=== PATIENT | female | born 1955 | race Caucasian/White ===

== ENCOUNTER 2016-09-30 11:23 | Observation (INO) | payer BC ==
[~2016-09-30] VITALS: Ht 154.9 cm; Wt 72.2 kg
--- NOTE | 2016-09-30 12:36 | DIAGNOSTIC IMAGING REPORT ---
PROCEDURE: CT HEAD WITHOUT CONTRAST INDICATION: MENTAL STATUS CHANGE, initial encounter TECHNIQUE: Noncontrast axial images with sagittal and coronal reformations. COMPARISON: Head CT 07/09/2012 FINDINGS: Status post right frontotemporal craniotomy and the right supraclinoid aneurysm clip. Normal sulci and ventricular system. Minor bifrontal white matter hypodensities No evidence of acute intracranial process. Mild bilateral maxillary and ethmoid sinus disease. Mastoids are clear. IMPRESSION: 1. No acute intracranial abnormality 2. Status post right frontotemporal craniotomy and right supraclinoid aneurysm clip, unchanged 3. Minor bifrontal white matter chronic changes 4. Findings discussed with Dr. France at 12:33 p.m., [place] Standard Time
--- NOTE | 2016-09-30 19:18 | ED CLINICAL REPORT ---
Clinical Report - Physicians/Mid Levels [facility] [address] [place] [address] 09/30/2016 11:23 Patient: LULA MALDONADO Time Seen: 11:55 Sep 30 2016. Arrived- By ambulance. Historian- patient and EMS personnel. CPT: ER phys charges level 5 (#[id number]). HISTORY OF PRESENT ILLNESS Chief Complaint: HEADACHE. Is still present. 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 due to H/A, memory loss, dizziness confused, weak, nauseas for about [address] Whaley for feeling "sick" cold like symptoms was given Zpack which was just started yesterday.). Onset during light activity. It is described as "pain". Described as a global headache. At its maximum, severity described as moderate. When seen in the E.D., severity described as moderate. Modifying factors: worsened by bright light and noise; relieved by rest. The patient has had photophobia and nausea. No preceding symptoms, blurred vision, numbness or weakness. (Pt indicates that [facility] when she suddenly could not remember where she was and where she was going. She had to get help from her to [facility] get to [facility]. She is better now and symptoms resolved.). Similar symptoms previously: None. Recent medical care: Not recently seen/assessed. REVIEW OF SYSTEMS No fever, muscle aches, sinus pressure, ear pain or sore throat. No head injury, chest pain, difficulty breathing, cough or abdominal pain. No diarrhea, pain with urination, skin rash, enlarged lymph nodes or back pain. All systems otherwise negative, except as recorded above. PAST HISTORY Muscular Dystrophy. Brain aneurysm. Fibromyalgia. Atypical Chest Pain. Pulmonary Embolism. Hypertension. Congestive Heart Failure [RuleOut]. Bronchospasm [RuleOut]. ADDITIONAL SURGERIES: Bladder Suspension. Brain aneurysm. Medications: Mucinex D Oral. Azithromycin Oral. Hydrocodone-Acetaminophen Oral. Albuterol Sulfate HFA Inhalation. Metoprolol Tartrate Oral 25 mg, twice daily. Allergies: Codeine. Demerol. morphine. SOCIAL HISTORY Heavy tobacco smoker (cigarette)- 1 pack per day. Alcohol use. No drug use. ADDITIONAL NOTES The nursing notes have been reviewed. PHYSICAL EXAM Vital Signs: 09/30/2016 11:24 BP: 138/81. HR: 67. RR: 12. O2 saturation: 97%. Temp: 98.2 F. Pain level now: 10/10. Appearance: Alert. Patient in moderate distress. Eyes: Pupils equal, round and reactive to light. Eyes normal inspection. ENT: Ears normal. Nose normal. Pharynx normal. Neck: Normal inspection. Neck supple. No meningeal signs. CVS: Normal heart rate and rhythm. Heart sounds normal. Pulses normal. Respiratory: No respiratory distress. Breath sounds normal. Abdomen: Soft and nontender. Back: Normal inspection. Skin: Skin warm. Normal skin color. No rash. Extremities: Extremities exhibit normal ROM. No lower extremity edema. Neuro: Oriented X 3. Alert. Mood/affect normal. Speech normal. Cranial nerves normal (as tested). No cerebellar findings. No motor deficit. No sensory deficit. Reflexes normal. LABS, X-RAYS, AND EKG CT Head: No acute disease. Laboratory Tests: UA-Culture if indicated: (DARIEL: 09/30/2016 11:30) ( MsgRcvd 09/30/2016 12:49) Final results Test Result Flag Units (Reference) URINE COLOR YELLOW URINE APPEARANCE CLEAR URINE GLUCOSE NEGATIVE (NEGATIVE) URINE BILIRUBIN NEGATIVE (NEGATIVE) URINE KETONE NEGATIVE (NEGATIVE) URINE SPECIFIC GRAVITY <= 1.005 L (1.010-1.030) URINE PH 6.5 (5.0-8.0) URINE PROTEIN NEGATIVE (NEGATIVE) URINE UROBILINOGEN 0.2 EU/dL (0.2-1.0) URINE NITRITE NEGATIVE (NEGATIVE) URINE BLOOD NEGATIVE (NEGATIVE) URINE LEUK ESTERASE NEGATIVE (NEGATIVE) URINE RBC NONE SEEN rbc/hpf (0-1) URINE WBC NONE SEEN wbc/hpf (0-1) URINE EPITHELIAL CELLS RARE EPI/hpf (0-5) URINE BACTERIA NONE SEEN (NONE SEEN) URINE COMMENT CULT NOT INDICATED URINE CULTURES ARE SET-UP BASED ON THE FOLLOWING CRITERIA:POSITIVE NITRITEPOSITIVE LEUKOCYTE ESTERASEGREATER THAN 10 WHITE BLOOD CELLSMODERATE (2+) OR GREATER BACTERIA CBC w Diff: (DARIEL: 09/30/2016 11:50) ( [facility] [place] 12:55[place] Final results Test Result Flag Units (Reference) WHITE BLOOD COUNT 5.0 K/uL (4.5-11.5) RED BLOOD COUNT 4.95 M/uL (4.00-5.20) HEMOGLOBIN 16.1 H gm/dL (12.0-16.0) HEMATOCRIT 45.9 % (36.0-46.0) MEAN CELL VOLUME 93 fL (80-100) MEAN CORPUSCULAR HGB 33 pg (26-34) MEAN CORPUSCULAR HGB CONC 35 g/dL (31-37) RED CELL DISTRIBUTION WIDTH 14.6 % (11.6-14.8) PLATELET COUNT 242 K/uL (150-400) NEUTROPHIL % 49.7 L % (50-75) LYMPH % 37.9 % (25-40) MONO % 9.2 % (3-14) EOSINOPHIL % 2.5 % (0-4) BASOPHIL % 0.7 % (0-2) SED RATE WESTERGREN 10 mm/hr (0-30) CHEM 13 PANEL: (DARIEL: 09/30/2016 11:50) ( [facility] [place] 13:18) Final results Test Result Flag Units (Reference) GLUCOSE 98 mg/dL (70-110) BUN 9 mg/dL (7-18) CREATININE 0.5 L mg/dL (0.6-1.3) Estimated GFR >60 mL/min Estimated GFR- >60 mL/min Note: Persistent reduction over 3 months in eGFR<60 mL/min/1.73 m2 defines CKD. Patients with eGFR values>=60 mL/min/1.73 m2 may also have CKD if evidence ofpersistent proteinuria. Additional information may be foundat www.kidney.org. SODIUM 142 mmol/L (136-145) POTASSIUM 4.3 mmol/L (3.5-5.1) CHLORIDE 106 mmol/L (98-107) CARBON DIOXIDE 26 mmol/L (21-32) CALCIUM 9.6 mg/dL (8.5-10.1) TOTAL PROTEIN 7.5 g/dL (6.4-8.2) ALBUMIN 3.8 g/dL (3.3-5.0) BILIRUBIN, TOTAL 0.7 mg/dL (0.0-1.0) ALKALINE PHOSPHATASE 93 U/L (46-116) AST (SGOT) 35 U/L (15-37) ALT (SGPT) 49 U/L (12-78) MAGNESIUM 2.1 mg/dL (1.8-2.4) CPK 400 H U/L (24-260) CK-MB 9.3 H ng/mL (0.5-3.2) %CKMB 2.3 % (0.0-4.0) TROPONIN I <0.05 ng/mL (0.00-1.5) TROPONIN REFERENCE RANGE:<0.1 NEGATIVE0.1-1.5 INDETERMINANT>1.5 POSITIVE C-REACTIVE PROTEIN 1.2 H mg/dL (0.0-0.9) CSF, Cell Count: (DARIEL: 09/30/2016 16:05) ( MsgRcvd 09/30/2016 17:00) Final results Test Result Flag Units (Reference) CSF GLUCOSE 58 mg/dL (40-75) CSF PROTEIN 80.2 H mg/dL (15-45) CSF TOTAL VOLUME 3.0 CC TUBE # 3 COLOR COLORLESS APPEARANCE CLEAR CSF WBC 5 WBC/mm3 (0-5) CSF RBC 0 RBC/mm3 (0-5) . PROGRESS AND PROCEDURES Course of Care: Pt CT negative. Discussed need for LP due to severe MERIDA that is uncommon for her. She had to have time to discuss it and decide. 15:12 09/30/16. Pt has decided to go ahead with LP. Pt with spell of dizziness and amnesia at home with severe MERIDA and now a small run of tachycardia. May be consistent with transient global amnesia and TIA. Will admit for further monitoring and evaluation. Patient/family counseled. Disposition orders written. Disposition: Admitted to Acute Care. CLINICAL IMPRESSION Transient global amnesia TIA Headache. (Electronically signed by John France MD 10/03/2016 21:37)
--- NOTE | 2016-09-30 19:18 | ED CLINICAL REPORT ---
Clinical Report - Physicians/Mid Levels [facility] [address] [place] [address] 09/30/2016 11:23 Patient: LULA MALDONADO Time Seen: 11:55 Sep 30 2016. Arrived- By ambulance. Historian- patient and EMS personnel. CPT: ER phys charges level 5 (#[id number]). HISTORY OF PRESENT ILLNESS Chief Complaint: HEADACHE. Is still present. 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 Whaley for feeling "sick" cold like symptoms was given Zpack which was just started yesterday.). Onset during light activity. It is described as "pain". Described as a global headache. At its maximum, severity described as moderate. When seen in the E.D., severity described as moderate. Modifying factors: worsened by bright light and noise; relieved by rest. The patient has had photophobia and nausea. No preceding symptoms, blurred vision, numbness or weakness. (Pt indicates that [facility] when she suddenly could not remember where she was and where she was going. She had to get help from her to [facility] get to [facility]. She is better now and symptoms resolved.). Similar symptoms previously: None. Recent medical care: Not recently seen/assessed. REVIEW OF SYSTEMS No fever, muscle aches, sinus pressure, ear pain or sore throat. No head injury, chest pain, difficulty breathing, cough or abdominal pain. No diarrhea, pain with urination, skin rash, enlarged lymph nodes or back pain. All systems otherwise negative, except as recorded above. PAST HISTORY Muscular Dystrophy. Brain aneurysm. Fibromyalgia. Atypical Chest Pain. Pulmonary Embolism. Hypertension. Congestive Heart Failure [RuleOut]. Bronchospasm [RuleOut]. ADDITIONAL SURGERIES: Bladder Suspension. Brain aneurysm. Medications: Mucinex D Oral. Azithromycin Oral. Hydrocodone-Acetaminophen Oral. Albuterol Sulfate HFA Inhalation. Metoprolol Tartrate Oral 25 mg, twice daily. Allergies: Codeine. Demerol. morphine. SOCIAL HISTORY Heavy tobacco smoker (cigarette)- 1 pack per day. Alcohol use. No drug use. ADDITIONAL NOTES The nursing notes have been reviewed. PHYSICAL EXAM Vital Signs: 09/30/2016 11:24 BP: 138/81. HR: 67. RR: 12. O2 saturation: 97%. Temp: 98.2 F. Pain level now: 10/10. Appearance: Alert. Patient in moderate distress. Eyes: Pupils equal, round and reactive to light. Eyes normal inspection. ENT: Ears normal. Nose normal. Pharynx normal. Neck: Normal inspection. Neck supple. No meningeal signs. CVS: Normal heart rate and rhythm. Heart sounds normal. Pulses normal. Respiratory: No respiratory distress. Breath sounds normal. Abdomen: Soft and nontender. Back: Normal inspection. Skin: Skin warm. Normal skin color. No rash. Extremities: Extremities exhibit normal ROM. No lower extremity edema. Neuro: Oriented X 3. Alert. Mood/affect normal. Speech normal. Cranial nerves normal (as tested). No cerebellar findings. No motor deficit. No sensory deficit. Reflexes normal. LABS, X-RAYS, AND EKG CT Head: No acute disease. Laboratory Tests: UA-Culture if indicated: (DARIEL: 09/30/2016 11:30) ( MsgRcvd 09/30/2016 12:49) Final results Test Result Flag Units (Reference) URINE COLOR YELLOW URINE APPEARANCE CLEAR URINE GLUCOSE NEGATIVE (NEGATIVE) URINE BILIRUBIN NEGATIVE (NEGATIVE) URINE KETONE NEGATIVE (NEGATIVE) URINE SPECIFIC GRAVITY <= 1.005 L (1.010-1.030) URINE PH 6.5 (5.0-8.0) URINE PROTEIN NEGATIVE (NEGATIVE) URINE UROBILINOGEN 0.2 EU/dL (0.2-1.0) URINE NITRITE NEGATIVE (NEGATIVE) URINE BLOOD NEGATIVE (NEGATIVE) URINE LEUK ESTERASE NEGATIVE (NEGATIVE) URINE RBC NONE SEEN rbc/hpf (0-1) URINE WBC NONE SEEN wbc/hpf (0-1) URINE EPITHELIAL CELLS RARE EPI/hpf (0-5) URINE BACTERIA NONE SEEN (NONE SEEN) URINE COMMENT CULT NOT INDICATED URINE CULTURES ARE SET-UP BASED ON THE FOLLOWING CRITERIA:POSITIVE NITRITEPOSITIVE LEUKOCYTE ESTERASEGREATER THAN 10 WHITE BLOOD CELLSMODERATE (2+) OR GREATER BACTERIA CBC w Diff: (DARIEL: 09/30/2016 11:50) ( [facility] [place] 12:55) Final results Test Result Flag Units (Reference) WHITE BLOOD COUNT 5.0 K/uL (4.5-11.5) RED BLOOD COUNT 4.95 M/uL (4.00-5.20) HEMOGLOBIN 16.1 H gm/dL (12.0-16.0) HEMATOCRIT 45.9 % (36.0-46.0) MEAN CELL VOLUME 93 fL (80-100) MEAN CORPUSCULAR HGB 33 pg (26-34) MEAN CORPUSCULAR HGB CONC 35 g/dL (31-37) RED CELL DISTRIBUTION WIDTH 14.6 % (11.6-14.8) PLATELET COUNT 242 K/uL (150-400) NEUTROPHIL % 49.7 L % (50-75) LYMPH % 37.9 % (25-40) MONO % 9.2 % (3-14) EOSINOPHIL % 2.5 % (0-4) BASOPHIL % 0.7 % (0-2) SED RATE WESTERGREN 10 mm/hr (0-30) CHEM 13 PANEL: (DARIEL: 09/30/2016 11:50) ( [facility] [place]/2016 13:18) Final results Test Result Flag Units (Reference) GLUCOSE 98 mg/dL (70-110) BUN 9 mg/dL (7-18) CREATININE 0.5 L mg/dL (0.6-1.3) Estimated GFR >60 mL/min Estimated GFR- >60 mL/min Note: Persistent reduction over 3 months in eGFR<60 mL/min/1.73 m2 defines CKD. Patients with eGFR values>=60 mL/min/1.73 m2 may also have CKD if evidence ofpersistent proteinuria. Additional information may be foundat www.kidney.org. SODIUM 142 mmol/L (136-145) POTASSIUM 4.3 mmol/L (3.5-5.1) CHLORIDE 106 mmol/L (98-107) CARBON DIOXIDE 26 mmol/L (21-32) CALCIUM 9.6 mg/dL (8.5-10.1) TOTAL PROTEIN 7.5 g/dL (6.4-8.2) ALBUMIN 3.8 g/dL (3.3-5.0) BILIRUBIN, TOTAL 0.7 mg/dL (0.0-1.0) ALKALINE PHOSPHATASE 93 U/L (46-116) AST (SGOT) 35 U/L (15-37) ALT (SGPT) 49 U/L (12-78) MAGNESIUM 2.1 mg/dL (1.8-2.4) CPK 400 H U/L (24-260) CK-MB 9.3 H ng/mL (0.5-3.2) %CKMB 2.3 % (0.0-4.0) TROPONIN I <0.05 ng/mL (0.00-1.5) TROPONIN REFERENCE RANGE:<0.1 NEGATIVE0.1-1.5 INDETERMINANT>1.5 POSITIVE C-REACTIVE PROTEIN 1.2 H mg/dL (0.0-0.9) CSF, Cell Count: (DARIEL: 09/30/2016 16:05) ( MsgRcvd 09/30/2016 17:00) Final results Test Result Flag Units (Reference) CSF GLUCOSE 58 mg/dL (40-75) CSF PROTEIN 80.2 H mg/dL (15-45) CSF TOTAL VOLUME 3.0 CC TUBE # 3 COLOR COLORLESS APPEARANCE CLEAR CSF WBC 5 WBC/mm3 (0-5) CSF RBC 0 RBC/mm3 (0-5) . PROGRESS AND PROCEDURES Course of Care: Pt CT negative. Discussed need for LP due to severe MERIDA that is uncommon for her. She had to have time to discuss it and decide. 15:12 09/30/16. Pt has decided to go ahead with LP. Pt with spell of dizziness and amnesia at home with severe MERIDA and now a small run of tachycardia. May be consistent with transient global amnesia and TIA. Will admit for further monitoring and evaluation. Patient/family counseled. Disposition orders written. Disposition: Admitted to Acute Care. CLINICAL IMPRESSION Transient global amnesia TIA Headache. (Electronically signed by John France MD 10/03/2016 21:37)
--- NOTE | 2016-09-30 19:18 | ED NURSING NOTES ---
Clinical Report - Nurses [facility] [address] [place] [address] 09/30/2016 11:23 Patient: LULA MALDONADO TRIAGE Triage time 1124 PM. Acuity: LEVEL 2. Chief Complaint: HEADACHE. Alert. No acute distress. STEPAN COMA SCORE: Cary Coma Scale. Stepan Coma Scale: 14- eyes open spontaneously (4); best verbal response- disoriented (4); best motor response- obeys commands (6). --11:46 Connie Marshall R.N. 11:24 09/30/16. BP: 138/81 (regular adult cuff) taken on the right arm, via an automated monitor, while sitting. HR: 67. RR: 12. O2 saturation: 97%. Temp: 98.2 F. Pain level now: 06/05. --11:46 Connie Marshall R.N. Weight: 73.9 kg stated. Height/Length: 61 inches Per Patient. BMI: 30.8. --11:44 Connie Marshall R.N. Medications Metoprolol Tartrate Oral 25 mg, twice daily. --11:28 Connie Marshall R.N. Albuterol Sulfate HFA Inhalation. --11:29 Connie Marshall R.N. Hydrocodone-Acetaminophen Oral. --11:29 Connie Marshall R.N. Azithromycin Oral. --11:31 Connie Marshall R.N. Mucinex D Oral. --11:32 Connie Marshall R.N. Medication/allergy information source: the patient and other. --11:46 Connie Marshall R.N. Allergies Codeine. Demerol. morphine. --11:28 Connie Marshall R.N. History Arrived by EMS, and from a clinic. Historian: patient. Primary physician (Dr. Roberto). ( Pt arrived via EMS from the [facility] due to H/A, memory loss, dizziness confused, weak, nauseas for about [address] Whaley for feeling "sick" cold like symptoms was given Zpack which was just started yesterday.). This started 5 days. Patient was witnessed to be last known well (yesterday). Onset. (5 days). The patient has had fever, nausea and weakness. No vomiting, numbness or sinus pain. 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 EMS treatment FLOORING INSTALLER verbally communicated. BP: 184 / 84. O2 saturation: 97 % room air. Pulse oximeter not applied. youth nutritional monitor not applied. Pre-hospital 12-lead EKG not performed. No medications given. PAST MEDICAL HX: Headaches. Immunizations: up-to-date. SOCIAL HX: Heavy tobacco smoker. Regular alcohol use; consumes four beers a day. No drug use. No recent travel. No infectious disease exposure. No known contact with a sick individual. ABUSE ASSESSMENT: No report of abuse. SELF HARM ASSESSMENT: A self harm assessment was performed. The patient answered "no" to the question "Do you have thoughts of harming or killing yourself?" and "Have you recently had thoughts about harming or killing others?". FALL RISK ASSESSMENT: Fall risk assessment completed. No fall risk identified. NUTRITIONAL RISK ASSESSMENT: The nutritional risk assessment revealed no deficiencies. FUNCTIONAL ASSESSMENT: Functional assessment: no impairments noted. LEARNING NEEDS ASSESSMENT: The learning needs assessment revealed no barriers. --11:46 Connie Marshall R.N. PROBLEMS: Muscular Dystrophy. Brain aneurysm. Fibromyalgia. Atypical Chest Pain. Pulmonary Embolism. Hypertension. --11:39 Connie Marshall R.N. Congestive Heart Failure [RuleOut]. Bronchospasm [RuleOut]. --11:39 Connie Marshall R.N. ADDITIONAL SURGERIES: Bladder Suspension. Brain aneurysm. --11:39 Connie Marshall R.N. Interventions ID band on patient. --11:46 Connie Marshall R.N. PHYSICAL ASSESSMENT To room via stretcher. GENERAL / NEURO / PSYCH: Oriented X 4. Appears in pain. Decreased awareness. The patient is disoriented to place and time. Speech within normal limits. The patient has had weakness. HEENT: No facial asymmetry noted. Pupils equal, round and reactive to light. RESPIRATORY: Respirations not labored. Decreased breath sounds bilaterally; wheezes right upper lung posteriorly; left upper lung posteriorly. CVS: Cardiac rhythm: normal sinus rhythm. Capillary refill less than 2 seconds. GI / : The patient has had nausea. Abdomen soft and nontender. SKIN: Skin is warm and dry. --11:57 Connie Marshall R.N. NURSING PROGRESS NOTES 11:50 09/30/2016 Site #1 started via IV in the left antecubital space with an 20g angiocath; one attempt. Blood drawn: rainbow set. Labeled in the presence of the patient and sent to the lab. Saline lock flushed. --12:00 Connie Marshall R.N. 11:45 09/30/16. BP: 124/77. HR: 59. RR: 19. O2 saturation: 96% on room air. Pain level now: 06/05. --12:04 Connie Marshall R.N. Cardiac rhythm: normal sinus rhythm. The initial plan of care for this patient has been created This plan of care was discussed with the patient and family. youth nutritional monitor, pulse oximeter and NIBP monitor placed on patient. Patient ID band checked for patient name, birthdate and medical record number: patient confirmed. Blood samples drawn from the right antecubital space by nurse per protocol ; labeled in presence of the patient and sent to lab: rainbow set. Patient gowned. Reassurance given. Lights dimmed. ( As per pt's , speech is slow, H/A is mostly in the back of the head "sharp like bites in the front and the left side" photophobia noted, slow motor and speech. MD France aware). GENERAL / NEURO / PSYCH: The patient reports headache. Decreased awareness. HEENT: The patient reports neck pain. Pupillary exam: Right pupil round and briskly reactive to light directly. Left pupil: round and briskly reactive to light directly. Patient transported to CT by stretcher. Two patient identifiers checked. Call light placed in reach. Side rails up x 2. Bed placed in lowest position. Brakes of bed on. Brakes of chair on. --12:04 Connie Marshall R.N. 12:22 09/30/16. BP: 133/68 (regular adult cuff) taken on the left arm, via an automated monitor, while lying. HR: 78. RR: 12. O2 saturation: 100% on room air. Pain level now: 0/10. --12:23 Connie Marshall R.N. 12:34 09/30/2016 Dilaudid (HYDROmorphone HCl PF) IVP 0.5 mg given over 1 minute(s) via site #1. Allergies verified, confirmed 5 rights and sedative warning given to the patient. IV patency established. IV site checked: no pain, redness, or swelling. IV flushed thoroughly pre- and post-medication administration. IVP given by RN. --12:34 Connie Marshall R.N. 12:35 09/30/2016 Zofran (Ondansetron HCl) IVP 4 mg given over 2 minute(s) via site #1. Allergies verified and confirmed 5 rights. IV patency established. IV site checked: no pain, redness, or swelling. IV flushed thoroughly pre- and post-medication administration. IVP given by RN. --12:35 Connie Marshall R.N. 12:37 09/30/16. BP: 133/85 (regular adult cuff) taken on the left arm, via an automated monitor, while sitting. HR: 66. RR: 15. O2 saturation: 90% on room air. Pain level now: 10/10. Additional comments: placed on 2l of NC. --12:41 Connie Marshall R.N. Cardiac rhythm: sinus bradycardia. Oxygen administered by nasal cannula at 2 liters. Reassurance given. The patient is calm. GENERAL / NEURO / PSYCH: The patient reports headache. Appears in pain. HEENT: The patient reports neck pain. RESPIRATORY: Respiratory distress present. SKIN: Skin is warm and dry. Skin color within normal limits. Patient returned from CT by stretcher. (1232 PM). Two patient identifiers checked. Call light placed in reach. Side rails up x 1. Bed placed in lowest position. Brakes of bed on. Brakes of chair on. --12:41 Connie Marshall R.N. 12:52 09/30/2016 Ativan (LORazepam) IVP 0.5 mg given over 1 minute(s) via site #1. Allergies verified, confirmed 5 rights and sedative warning given to the patient. IV patency established. IV site checked: no pain, redness, or swelling. IV flushed thoroughly pre- and post-medication administration. IVP given by RN. --12:52 Connie Marshall R.N. Cardiac rhythm: sinus bradycardia. Reassurance given. Reassessment after medication administered. She has had no adverse reaction. Overall patient status is improved- she states feels better. ( Pt states "H/A better" more of a "float like" tolerating ice chips. Will monitor). GENERAL / NEURO / PSYCH: The patient reports left-sided, occipital, frontal and facial headache is still present but improving and is currently moderate in severity, described as sharp and pressure-like, constant and associated with nausea. Call light placed in reach. Side rails up x 1. Bed placed in lowest position. Brakes of chair on. --13:17 Connie Marshall R.N. 13:00 09/30/16. BP: 124/77. HR: 58. RR: 13. O2 saturation: 98%. O2 started via nasal cannula at 2 liters/minute. Pain level now: 02/03. --13:17 Connie Marshall R.N. 13:09/30/2016 Dilaudid IVP Response: no adverse reaction pain is improving. Symptoms have improved the patient feels better. --13:46 oCnnie Marshall R.N. 13:09/30/2016 Zofran IVP Response: no adverse reaction pain is improving. Symptoms have improved the patient feels better. --13:46 Connie Marshall R.N. 13:09/30/2016 Ativan IVP Response: no adverse reaction pain is improving. Symptoms have improved the patient feels better. --13:46 Connie Marshall R.N. 15:31 09/30/2016 Dilaudid (HYDROmorphone HCl PF) IVP 0.5 mg given over 1 minute(s) via site #1. Allergies verified, confirmed 5 rights and sedative warning given to the patient. IV patency established. IV site checked: no pain, redness, or swelling. IV flushed thoroughly pre- and post-medication administration. IVP given by RN. --15:31 Connie Marshall R.N. 15:09/30/2016 Ativan (LORazepam) IVP 0.5 mg given over 1 minute(s) via site #1. Allergies verified, confirmed 5 rights and sedative warning given to the patient and patient's family. IV patency established. IV site checked: no pain, redness, or swelling. IV flushed thoroughly pre- and post-medication administration. IVP given by RN. --15:31 Connie Marshall R.N. 15:00 09/30/16. BP: 137/83. HR: 61. RR: 14. O2 saturation: 95%. Temp: 98.2 F. Pain level now: 03/05. --15:33 Connie Marshall R.N. Cardiac rhythm: normal sinus rhythm. Oxygen administered by nasal cannula at 2 liters. youth nutritional monitor, pulse oximeter and NIBP monitor placed on patient. Reassurance given. Reassessment after oxygen administered and medication administered. She is calm and has had no adverse reaction. Overall patient status is improved- she states feels better. GENERAL / NEURO / PSYCH: The patient reports headache. HEENT: The patient reports neck pain. GI / : The patient reports nausea. SKIN: Skin color within normal limits. Two patient identifiers checked. Call light placed in reach. Side rails up x 1. Bed placed in lowest position. Brakes of bed on. Brakes of chair on. --15:33 Connie Marshall R.N. 16:08 09/30/16. BP: 132/58. HR: 54. RR: 15. O2 saturation: 95%. O2 started via nasal cannula at 2 liters/minute. Pain level now: 02/03. --16:11 Connie Marshall R.N. Cardiac rhythm: sinus bradycardia. youth nutritional monitor, pulse oximeter and NIBP monitor placed on patient. LUMBAR PUNCTURE: Lumbar puncture performed by ED physician (MD France). Assisted by one nurse (Joanna GALLOWAY). Preparation: consent obtained per patient, lumbar puncture tray set up and patient placed in sitting position. Procedure. One attempt. Procedure successful. Post-procedure: patient tolerated the procedure well. Patient instructed to lie flat. Total time of assist / procedure: (5-10 minutes). Reassurance given. Lights dimmed. Reassessment after oxygen administered. She is calm. Overall patient status is the same- she states feels better. ( Lumbar puncture done, consent obtained, pt tolerated procedure well, laying flat as ordered, site intact BA applied, zofran ordered and pain meds. Will monitor). GENERAL / NEURO / PSYCH: The patient reports headache. HEENT: The patient reports neck pain. GI / : The patient reports nausea. Two patient identifiers checked. Call light placed in reach. Side rails up. Brakes of bed on. Brakes of chair on. --16:11 Connie Marshall R.N. 15:57 09/30/2016 Dilaudid IVP Response: no adverse reaction the patient feels the same. --16:12 Connie Marshall R.N. Cardiac rhythm: sinus bradycardia. Oxygen administered. youth nutritional monitor, pulse oximeter and NIBP monitor placed on patient. Reassurance given. The patient is calm. Overall patient status is the same- she states feels the same. GENERAL / NEURO / PSYCH: The patient reports headache. HEENT: The patient reports neck pain. GI / : The patient reports nausea. Brakes of chair on. --16:58 Connie Marshall R.N. 16:30 09/30/16. BP: 134/67. HR: 53. RR: 17. O2 saturation: 95%. O2 started via nasal cannula at 2 liters/minute. Pain level now: 410. --16:58 Connie Marshall R.N. 16:59 09/30/2016 Dilaudid (HYDROmorphone HCl PF) IVP 0.5 mg given over 1 minute(s) via site #1. Allergies verified, confirmed 5 rights and sedative warning given to the patient. IV patency established. IV site checked: no pain, redness, or swelling. IV flushed thoroughly pre- and post-medication administration. IVP given by RN. --17:04 Connie Marshall R.N. 17:03 09/30/2016 Zofran (Ondansetron HCl) IVP 4 mg given over 2 minute(s) via site #1. Allergies verified and confirmed 5 rights. IV patency established. IV site checked: no pain, redness, or swelling. IV flushed thoroughly pre- and post-medication administration. IVP given by RN. --17:03 Connie Marshall R.N. 17:19 09/30/2016 Ativan (LORazepam) IVP 0.5 mg given over 1 minute(s) via site #1. Allergies verified, confirmed 5 rights and sedative warning given to the patient. IV patency established. IV site checked: no pain, redness, or swelling. IV flushed thoroughly pre- and post-medication administration. IVP given by RN. --17:19 Connie Marshall R.N. 17:19 09/30/2016 Zofran IVP Response: no adverse reaction pain is improving. Symptoms are the same. --17:19 Connie Marshall R.N. 17:20 09/30/2016 Dilaudid IVP Response: no adverse reaction. --17:20 Connie Marshall R.N. 16:34 09/30/16. BP: 134/67. HR: 52. RR: 15. O2 saturation: 94% on room air. Pain level now: 510. --19:57 Connie Marshall R.N. 16:45 PM late entry -. Cardiac rhythm: ventricular tachycardia; fine ventricular fibrillation; (50 run of 6 slow VT). youth nutritional monitor, pulse oximeter and NIBP monitor placed on patient. Reassurance given. ( At approximately at 1637 monitored traced a slow VT, asymptomatic VSS, denies SOB/CP Dr. France aware. Will monitor). --19:57 Connie Marshall R.N. Cardiac rhythm: sinus bradycardia. Reassurance given. Overall patient status is improved- she states feels better. ( Pt awaiting bed, found disconnecting from monitors "I want to go for a smoke and see my mom, will be back" educated on the importance of not leaving. Will let Dr. France know. No further arrhythmias noted). GENERAL / NEURO / PSYCH: The patient reports right-sided and occipital headache is still present but improving and is currently mild in severity and described as dull. HEENT: The patient reports neck pain. Two patient identifiers checked. Call light placed in reach. Side rails up x 1. Bed placed in lowest position. Brakes of bed on. Brakes of chair on. Patient waiting for admit bed. --19:59 Connie Marshall R.N. 19:57 09/30/16. BP: 121/54 (regular adult cuff) taken on the left arm, via an automated monitor, while sitting. HR: 58. RR: 16. O2 saturation: 96% on room air. Temp: 98.2 F (oral). Pain level now: 12/04. --19:59 Connie Marshall R.N. 18:51 09/30/2016 Ativan IVP Response: no adverse reaction pain is improving. --20:16 Connie Marshall R.N. 20:16 09/30/2016 Aspirin PO 325 mg given. Allergies verified and confirmed 5 rights. --20:16 Connie Marshall R.N. youth nutritional monitor, pulse oximeter and NIBP monitor placed on patient. Reassurance given. The patient has had no adverse reaction. Overall patient status is improved- she states feels better. ( Pt verbalizing not leaving the ED to "check on mom or smoke" Dr. France aware, nicotine patch will be ordered, awaiting on ICU bed). GENERAL / NEURO / PSYCH: The patient reports headache. HEENT: The patient reports neck pain. Two patient identifiers checked. Call light placed in reach. Side rails up x 1. Brakes of bed on. Brakes of chair on. --20:19 Connie Marshall R.N. 20:54 09/30/16. HR: 75. O2 saturation: 91% on room air. --20:55 Darshan Cantu R.N. 20:55. Cold pack applied (New ice pack given to pt). --20:55 Darshan Cantu R.N. 20:57. Oxygen administered by nasal cannula at 2 liters. --20:57 Darshan Cantu R.N. 21:25 09/30/2016 Dilaudid (HYDROmorphone HCl PF) IVP 1 mg given over 2 minute(s) via site #1. Allergies verified, confirmed 5 rights and sedative warning given to the patient. IV patency established. IV site checked: no pain, redness, or swelling. IV flushed thoroughly pre- and post-medication administration. IVP given by RN. --22:01 Connie Marshall R.N. 21:36 09/30/2016 Aspirin PO Response: no adverse reaction. --22: Connie Marshall R.N. 21:45 09/30/2016 Dilaudid IVP Response: no adverse reaction symptoms have improved the patient feels the same. --22: Connie Marshall R.N. 21:30 late entry -. Oxygen administered by nasal cannula at 2 liters. youth nutritional monitor, pulse oximeter and NIBP monitor placed on patient. Reassurance given. Lights dimmed. Overall patient status is improved- she states feels the same. ( Pt complaint of H/A Dr. Bey made aware, dilaudid given, pt motor response to be intact, speech is less slow but, pt admits to still feeling "foggy". No more runs of VT noted on monitor. Pt voided appro 200cc.). GENERAL / NEURO / PSYCH: The patient reports headache. HEENT: The patient reports neck pain. RESPIRATORY: No respiratory distress present. GI / : The patient reports nausea. Care transferred and report given (NLIESH Zelaya). --22:04 Connie Marshall R.N. DISPOSITION / DISCHARGE 21:33 09/30/2016 Site #1 reassessed; patent, infusing well and no signs of infection or infiltration. Line flushed with saline. Good blood return present. Flushed with 10 mL saline. --21:58 Connie Marshall R.N. Cardiac rhythm: sinus bradycardia. Departure time: 2145 PM. Condition at departure: stable. The goals identified in the patient's plan of care were met. Transported via stretcher by nurse with monitor. Report was given to a nurse via a phone call. Report included patient's care, treatment, medications, reviewed medication reconcilliation, and condition (including any recent changes or anticipated changes). All questions were answered. Report was acknowledged and care was transferred. ( Pt transferred safely to ICU, report given to NILESH Zelaya, IV site intact, dilaudid given as ordered. Neuro checks intact, admits to "stomach being upset" speech faster, LP site intact with BA, no back pain.). FALL RISK ASSESSMENT: Fall risk assessment completed. No fall risk identified. --22:00 Connie Marshall R.N. 21:40 09/30/16. BP: 135/71 (regular adult cuff) taken on the left arm, via an automated monitor, while sitting. HR: 53 (regular and bradycardic). RR: 16. O2 saturation: 96%. O2 started via nasal cannula at 2 liters/minute. Temp: 98.2 F (oral). Pain level now: 03/05. --22:00 Connie Marshall R.N. Locked/Released at 09/30/2016 22:05 by Connie Marshall R.N.
--- NOTE | 2016-09-30 19:18 | ED ORDER SUMMARY ---
..... Patient: LULA MALDONADO OrderSheet [facility] VisitID: [id number] [address] [place] [address] 61y, F Registration Date/Time: 09/30/2016 ORDER SHEET Weight: 73.9 kg (stated) Allergies: Codeine, Demerol, morphine GENERAL ORDERS: CT Head wo Cont Urgent (11:56 09/30/2016 Manolo HOWE) (Ack 11:57 TBergley) (12:04 EHassan R.N.) Cardiac Panel Stat (12:26 09/30/2016 Manolo HOWE) (Ack 12:31 TBergley) (12:32 EHassan R.N.) CRP Urgent (12:26 09/30/2016 Manolo HOWE) (Ack 12:31 TBergley) (12:32 EHassan R.N.) ESR Urgent (12:26 09/30/2016 Manolo HOWE) (Ack 12:31 TBergley) (12:32 EHassan R.N.) UA-Culture if indicated Urgent (12:30 09/30/2016 Manolo HOWE) (Ack 12:31 TBergley) (12:32 EHassan R.N.) LP Tray (15:11 09/30/2016 Manolo HOWE) (15:32 EHassan R.N.) CSF, Cell Count (tube 3) Urgent (16:12 09/30/2016 Manolo HOWE) (Ack 16:13 TBergley) (16:58 EHassan R.N.) CSF, Culture Urgent (16:12 09/30/2016 Manolo HOWE) (Ack 16:13 TBergley) (16:58 EHassan R.N.) CSF, Glucose Urgent (16:12 09/30/2016 Manolo HOWE) (Ack 16:13 TBergley) (16:58 EHassan R.N.) CSF, Protein Urgent (16:12 09/30/2016 Manolo HOWE) (Ack 16:13 TBergley) (16:58 EHassan R.N.) MEDICATION ORDERS: Aspirin PO 325 mg (NOW) (19:19 09/30/2016 Manolo HOWE) (20:16 Lazara R.N.) IV FLUIDS: Dilaudid IV 0.5 mg (NOW) (Sched q5m for X2); Routine (Prn pain) (Sched q5m for X2) (12:26 09/30/2016 Manolo HOWE) (12:34 Lazara R.N.) Ativan IV 0.5 mg (NOW) (12:27 09/30/2016 Manolo HOWE) (12:52 Lazara R.N.) Zofran IV 4 mg (NOW) (12:27 09/30/2016 Manolo HOWE) (12:35 EHgasepr R.N.) IV Saline Lock (12:27 09/30/2016 Manolo HOWE) (12:41 Lazara R.N.) Dilaudid IV 0.5 mg (NOW) (Sched q5m for X2); Routine (Prn pain) (12:31 09/30/2016 Manolo HOWE) (15:31 Lazara R.N.) Dilaudid IV 0.5 mg (NOW) (15:10 09/30/2016 Manolo HOWE) (17:04 EHgasper R.N.) Ativan IV 0.5 mg (NOW) (15:11 09/30/2016 Manolo HOWE) (15:31 Lazara R.N.) Zofran IV 4 mg (NOW) (16:12 09/30/2016 Lazara R.N. verbal order read back to Manolo HOWE) (17:03 Lazara R.N.) Ativan IV 0.5 mg (NOW) (17:15 09/30/2016 Manolo HOWE) (17:19 Lazara R.N.) Dilaudid IV 1 mg (HIGH ALERT MEDICATION, NOW) (21:25 09/30/2016 Luciana HOWE) (22:01 Lazara R.N.) ORDER SHEET NOTES: [Electronically signed by Connie Marshall R.N. (22:05 09/30/2016)] [Electronically signed by John France MD (21:37 10/03/2016)] [Electronically locked/signed by Connie Marshall R.N. (22:05 09/30/2016)]
--- NOTE | 2016-09-30 19:18 | ED ORDER SUMMARY ---
..... Patient: LULA MALDONADO OrderSheet [facility] VisitID: [id number] [address] [place] [address] 61y, F Registration Date/Time: 09/30/2016 ORDER SHEET Weight: 73.9 kg (stated) Allergies: Codeine, Demerol, morphine GENERAL ORDERS: CT Head wo Cont Urgent (11:56 09/30/2016 Manolo HOWE) (Ack 11:57 TBergley) (12:04 EHassan R.N.) Cardiac Panel Stat (12:26 09/30/2016 Manolo HOWE) (Ack 12:31 TBergley) (12:32 EHassan R.N.) CRP Urgent (12:26 09/30/2016 Manolo HOWE) (Ack 12:31 TBergley) (12:32 EHassan R.N.) ESR Urgent (12:26 09/30/2016 Manolo HOWE) (Ack 12:31 TBergley) (12:32 EHassan R.N.) UA-Culture if indicated Urgent (12:30 09/30/2016 Manolo HOWE) (Ack 12:31 TBergley) (12:32 EHassan R.N.) LP Tray (15:11 09/30/2016 Manolo HOWE) (15:32 EHassan R.N.) CSF, Cell Count (tube 3) Urgent (16:12 09/30/2016 Manolo HOWE) (Ack 16:13 TBergley) (16:58 EHassan R.N.) CSF, Culture Urgent (16:12 09/30/2016 Manolo HOWE) (Ack 16:13 TBergley) (16:58 EHassan R.N.) CSF, Glucose Urgent (16:12 09/30/2016 Manolo HOWE) (Ack 16:13 TBergley) (16:58 EHassan R.N.) CSF, Protein Urgent (16:12 09/30/2016 Manolo HOWE) (Ack 16:13 TBergley) (16:58 EHassan R.N.) MEDICATION ORDERS: Aspirin PO 325 mg (NOW) (19:19 09/30/2016 Manolo HOWE) (20:16 Lazara R.N.) IV FLUIDS: Dilaudid IV 0.5 mg (NOW) (Sched q5m for X2); Routine (Prn pain) (Sched q5m for X2) (12:26 09/30/2016 Manolo HOWE) (12:34 Lazara R.N.) Ativan IV 0.5 mg (NOW) (12:27 09/30/2016 Manolo HOWE) (12:52 Lazara R.N.) Zofran IV 4 mg (NOW) (12:27 09/30/2016 Manolo HOWE) (12:35 EHgasper R.N.) IV Saline Lock (12:27 09/30/2016 Manolo HOWE) (12:41 Lazara R.N.) Dilaudid IV 0.5 mg (NOW) (Sched q5m for X2); Routine (Prn pain) (12:31 09/30/2016 Manolo HOWE) (15:31 Lazara R.N.) Dilaudid IV 0.5 mg (NOW) (15:10 09/30/2016 Manolo HOWE) (17:04 EHgasper R.N.) Ativan IV 0.5 mg (NOW) (15:11 09/30/2016 Manolo HOWE) (15:31 Lazara R.N.) Zofran IV 4 mg (NOW) (16:12 09/30/2016 Lazara R.N. verbal order read back to Manolo HOWE) (17:03 Lazara R.N.) Ativan IV 0.5 mg (NOW) (17:15 09/30/2016 Manolo HOWE) (17:19 Lazara R.N.) Dilaudid IV 1 mg (HIGH ALERT MEDICATION, NOW) (21:25 09/30/2016 Luciana HOWE) (22:01 Lazara R.N.) ORDER SHEET NOTES: [Electronically signed by Connie Marshall R.N. (22:05 09/30/2016)] [Electronically signed by John France MD (21:37 10/03/2016)] [Electronically locked/signed by Connie Marshall R.N. (22:05 09/30/2016)]
--- NOTE | 2016-09-30 19:50 | History & Physical Report ---
Admission Admit Date 09/30/2016 History Chief Complaint Headache, Confusion History of Present Illness Patient is a 61 year old female with a past medical history of Essential Hypertension, Pulmonary Embolism, Brain Aneurysm, COPD, Fibromyalgia, and Tobacco Use Disorder who presents to the ER at [facility] complaining of headache and acute confusion. Pt was seen by her PCP earlier today and was sent over from clinic via EMS for further evaluation. Pt states she developed significant confusion this morning and suddenly was unable to recall where she was and why she was there while at her PCPs office this morning. Pt states she has been having a severe headache since yesterday which her home medications have not been relieving, and she went to see her PCP today for further evaluation. She states her symptoms have resolved now, except she continues to have a significant headache. She denies any change in her visual, speech, and swallowing ability. Pt denies any focal weakness, nausea, vomiting, palpitations, chest pain, and shortness of breath. Pt has no other complaints or concerns at this time. Patient History 1. Essential hypertension 2. Fibromyalgia 3. Tobacco use disorder 4. Hx pulmonary embolism 5. Brain aneurysm Social History Pt reports regular daily tobacco use. She also reports regular alcohol consumption but denies excessive drinking. Pt denies any hx of drug use. Pt does not require any assistive devices at baseline. Family History Family history was reviewed; no changes noted. Medications and Allergies Medications Current Medications Sig/Jose David Start time Last Medication Dose Route Stop Time Status Admin Atorvastatin Calcium 10 MG QPM 10/01 1800 UNV PO Aspirin 81 MG DAILY 10/01 0900 UNV PO Famotidine/Sodium 50 ML Q12HR 09/30 2100 UNV Chloride IV Acetaminophen 650 MG Q4H PRN 09/30 1929 UNV PO Al Hydrox/Mg Hydrox/ 15 ML Q1H PRN 09/30 1929 UNV Simethicone PO Albuterol Sulfate 2.5 MG Q3H PRN 09/30 1929 UNV IN Atropine Sulfate 0.5 MG Q3MIN PRN 09/30 1929 UNV IV Docusate Sodium 250 MG BID PRN 09/30 1929 UNV PO Hydromorphone HCl 1 MG Q6H PRN 09/30 1929 UNV IV Labetalol HCl 10 MG Q10M 09/30 1929 UNV IV Lidocaine HCl See Dose ONCE PRN 09/30 1929 UNi Insts (1) IV Magnesium Hydroxide 10 ML DAILY PRN 09/30 1929 UNV PO Morphine Sulfate 2 MG Q3M PRN 09/30 1929 UNV IV Naloxone HCl 0.4 MG PRN PRN 09/30 1929 UNV IV Nitroglycerin 0.4 MG Q5M PRN 09/30 1929 UNV SL Ondansetron HCl 4 MG Q6H PRN 09/30 1929 UNV IV Sodium Chloride 1,000 ML ASDIRECTED 09/30 1929 UNV IV Zolpidem Tartrate 5 MG QHS PRN 09/30 1929 UNV PO Dose Instructions: (1)Lidocaine HCl: 1.5 MG/KG Pts home medication list is not yet available and needs to be reconciled. Allergies Coded Allergies: Codeine (08/28/08) Morphine (01/24/12) Review of Systems Other All systems reviewed and are negative except for what has already been mentioned in the HPI. Physical Exam Vital Signs / I&Os TEMP: 97.7 degrees BP: 139/60 HR: 80 RR: 18 SpO2: 98% on room air Other GENERAL: NAD; Pt laying comfortably in bed HEENT: AT/NC; PERRLA, EOMI; MM Moist CARDIAC: RRR, No M/R/G appreciated PULM: Clear to auscultation bilaterally ABD: Soft, NT, ND, Positive BS in all quadrants; No hepatosplenomegaly appreciated EXT: No C/C/E in bilateral upper and lower extremity; No calve tenderness bilaterally SKIN: Warm, dry, pink, and intact NEURO: Alert and oriented x3; Following all commands; 5/5 strength in bilateral upper and lower extremities PSYCH: Normal mood and affect LAB Results Laboratory Tests 09/30 09/30 09/30 1605 1226 1150 Chemistry Plasma Sodium (136 - 145 mmol/L) 142 Plasma Potassium (3.5 - 5.1 mmol/L) 4.3 Plasma Chloride (98 - 107 mmol/L) 106 CO2 (Enzymatic) (21 - 32 mmol/L) 26 BUN (7 - 18 mg/dL) 9 Creatinine (0.6 - 1.3 mg/dL) 0.5 Est GFR ( Amer) (mL/min) >60 Est GFR (Non-Af Amer) (mL/min) >60 Glucose (70 - 110 mg/dL) 98 Plasma Calcium (8.5 - 10.1 mg/dL) 9.6 Plasma Magnesium (1.8 - 2.4 mg/dL) 2.1 Total Bilirubin (0.0 - 1.0 mg/dL) 0.7 AST (15 - 37 U/L) 35 ALT (12 - 78 U/L) 49 Alkaline Phosphatase (46 - 116 U/L) 93 Creatine Kinase (24 - 260 U/L) 400 CK-MB (CK-2) (0.5 - 3.2 ng/mL) 9.3 CK/CKMB % Calc (0.0 - 4.0 %) 2.3 Troponin (0.00 - 1.5 ng/mL) <0.05 C-Reactive Protein (0.0 - 0.9 mg/dL) Cancelled 1.2 Total Protein (6.4 - 8.2 g/dL) 7.5 Albumin (3.3 - 5.0 g/dL) 3.8 Hematology WBC (4.5 - 11.5 K/uL) 5.0 RBC (4.00 - 5.20 M/uL) 4.95 Hgb (12.0 - 16.0 gm/dL) 16.1 Hct (36.0 - 46.0 %) 45.9 MCV (80 - 100 fL) 93 MCH (26 - 34 pg) 33 RDW (11.6 - 14.8 %) 14.6 Neut % (Auto) (50 - 75 %) 49.7 Lymph % (Auto) (25 - 40 %) 37.9 [place] % (Auto) (3 - 14 %) 9.2 Eos % (Auto) (0 - 4 %) 2.5 Baso % (Auto) (0 - 2 %) 0.7 Plt Count, EDTA (150 - 400 K/uL) 242 PUBS MCHC (31 - 37 g/dL) 35 ESR Westergren (0 - 30 mm/hr) Cancelled 10 Other Body Source CSF Tube Number 3 CSF Volume (CC) 3.0 CSF Appearance CLEAR CSF Color COLORLESS CSF WBC (0 - 5 WBC/mm3) 5 CSF RBC (0 - 5 RBC/mm3) 0 CSF Glucose (40 - 75 mg/dL) 58 CSF Total Protein (15 - 45 mg/dL) 80.2 09/30 1130 Toxicology Urine Opiates Screen Pending Urine Methadone Screen Pending Ur Barbiturates Screen Pending U Amphetamin/Meth Scrn Pending MDMA (Ecstasy) Screen Pending U Benzodiazepines Scrn Pending Urine Cocaine Screen Pending U Cannabinoids Screen Pending Urines Urine Color YELLOW Urine Appearance CLEAR Urine pH (5.0 - 8.0) 6.5 Ur Specific [place] (1.010 - 1.030) <= 1.005 Urine Protein (NEGATIVE) NEGATIVE Urine Ketones (NEGATIVE) NEGATIVE Urine Blood (NEGATIVE) NEGATIVE Urine Nitrite (NEGATIVE) NEGATIVE Urine Bilirubin (NEGATIVE) NEGATIVE Urine Urobilinogen (0.2 - 1.0 EU/dL) 0.2 Ur Leukocyte Esterase (NEGATIVE) NEGATIVE Urine RBC (0 - 1 rbc/hpf) NONE SEEN Urine WBC (0 - 1 wbc/hpf) NONE SEEN Ur Epithelial Cells (0 - 5 EPI/hpf) RARE Urine Bacteria (NONE SEEN) NONE SEEN Urine Glucose (NEGATIVE) NEGATIVE Urine Comment CULT NOT INDICATED Microbiology Date/Time Procedure - Status Source Growth 09/30 1605 CSF Culture - RES CSF 09/30 1605 Gram Stain - RES CSF Imaging CT HEAD WITHOUT CONTRAST INDICATION: MENTAL STATUS CHANGE, initial encounter TECHNIQUE: Noncontrast axial images with sagittal and coronal reformations. COMPARISON: Head CT 07/09/2012 FINDINGS: Status post right frontotemporal craniotomy and the right supraclinoid aneurysm clip. Normal sulci and ventricular system. Minor bifrontal white matter hypodensities No evidence of acute intracranial process. Mild bilateral maxillary and ethmoid sinus disease. Mastoids are clear. IMPRESSION: 1. No acute intracranial abnormality 2. Status post right frontotemporal craniotomy and right supraclinoid aneurysm clip, unchanged 3. Minor bifrontal white matter chronic changes 4. Findings discussed with Dr. France at 12:33 p.m.[facility] Standard Time Assessment and Plan Problem List 1. TIA (transient ischemic attack) Plan - Admit to hospital under observation as anticipated LOS is less than 48 hours - Start Aspirin 81 mg daily - Check fasting Lipid Panel in AM - Hold home beta jyotsna for now to allow for permissive hypertension for first 24 hours - Start Atorvastatin 10 mg PO q HS tonight - Speech Therapy evaluation for swallowing ability - PT evaluation prior to discharge - Telemetry monitoring - Will order an MRI of the brain without contrast - Will order an MRA of the head and neck - Will order an ECHO at this time - IV Normal Saline at 100 mL/hour for now - Neuro checks - IV Labetolol for severe hypertension 2. Essential hypertension Plan - Hold home beta jyotsna for now - Monitor BP closely - IV Labetolol PRN for SBP greater than 180 mmHg 3. Fibromyalgia Plan - IV Dialudid PRN for severe pain - Restart home meds once medication reconcilation done in AM 4. Tobacco use disorder Plan - Pt counseled to quit smoking FULL CODE, per discussion with patient at bedside
[2016-09-30 21:45] VITALS: BP 124/76
[2016-09-30 22:00] VITALS: BP 121/77
[2016-09-30 23:00] VITALS: BP 121/68
[2016-10-01] VITALS (12 sets, daily range): BP systolic 94–139; BP diastolic 42–82
[2016-10-01] MEDS ORDERED: METOPROLOL TART25 MG PO (01:37)
[2016-10-01] MEDS ORDERED: VITAMIN E200 UNIT PO (01:38)
[2016-10-01] MEDS ORDERED: VITAMIN D-31000 UNIT PO (01:38)
[2016-10-01] MEDS ORDERED: ALBUTEROL HFA60 DOSE IN (01:39)
[2016-10-01] MEDS ORDERED: NORCO1 TA1 PO ×2 (01:39→12:13)
[2016-10-01] MEDS ORDERED: AZITHROMYCIN500 MG PO (01:40)
[2016-10-01] MEDS ORDERED: MUCINEX600 MG PO (01:40)
[2016-10-01] MEDS ORDERED: BAYER ASPIRIN E81 M1 PO (01:42)
--- NOTE | 2016-10-01 11:51 | DIAGNOSTIC IMAGING REPORT ---
PROCEDURE: US BILATERAL CAROTID DOPPLER INDICATION: CVA versus TIA. Smoking history. History brain aneurysm. TECHNIQUE: Color Doppler duplex imaging of the carotid and vertebral vessels. COMPARISON: None. FINDINGS: Right common carotid artery peak systolic velocity 62 cm/second. Right internal carotid artery peak systolic velocity 94 cm/second. Right external carotid artery peak systolic velocity 77 cm/second. Right sggcfxpu-xh-nkwygj carotid artery ratio 1.5 Right vertebral artery peak systolic velocity 55 cm/second antegrade. Left common carotid artery peak systolic velocity 62 cm/second. Left internal carotid artery peak systolic velocity 95 cm/second. Left external carotid artery peak systolic velocity 85 cm/second. Left iboyisux-tl-brzvfs carotid artery ratio 1.5 Left vertebral artery peak systolic velocity 38 cm/second antegrade. IMPRESSION: 1. Minimal intimal thickening of the carotid vessels. 2. No evidence of carotid stenosis. Velocity criteria are extrapolated from diameter data as defined by the Society of Radiologists in Ultrasound Consensus Conference, Radiology 2003; 229; 340-346.
--- NOTE | 2016-10-01 11:51 | DIAGNOSTIC IMAGING REPORT ---
PROCEDURE: US BILATERAL CAROTID DOPPLER INDICATION: CVA versus TIA. Smoking history. History brain aneurysm. TECHNIQUE: Color Doppler duplex imaging of the carotid and vertebral vessels. COMPARISON: None. FINDINGS: Right common carotid artery peak systolic velocity 62 cm/second. Right internal carotid artery peak systolic velocity 94 cm/second. Right external carotid artery peak systolic velocity 77 cm/second. Right qqobtwae-rg-ofmekb carotid artery ratio 1.5 Right vertebral artery peak systolic velocity 55 cm/second antegrade. Left common carotid artery peak systolic velocity 62 cm/second. Left internal carotid artery peak systolic velocity 95 cm/second. Left external carotid artery peak systolic velocity 85 cm/second. Left gigblnzk-mw-nbumuw carotid artery ratio 1.5 Left vertebral artery peak systolic velocity 38 cm/second antegrade. IMPRESSION: 1. Minimal intimal thickening of the carotid vessels. 2. No evidence of carotid stenosis. Velocity criteria are extrapolated from diameter data as defined by the Society of Radiologists in Ultrasound Consensus Conference, Radiology 2003; 229; 340-346.
--- NOTE | 2016-10-01 12:01 | DIAGNOSTIC IMAGING REPORT ---
PROCEDURE: CT HEAD WITHOUT CONTRAST INDICATION: Follow-up TIA versus CVA. TECHNIQUE: Noncontrast axial images with sagittal and coronal reformations. COMPARISON: Compared to a head CT on 09/30/2016. FINDINGS: Status post right frontal craniotomy and with supraclinoid aneurysm clip. There are mild chronic old small vessel changes of the white matter (most pronounced in the frontal lobes). No evidence of an acute process or hemorrhage. Mild to moderate bilateral maxillary sinus mucosal thickening with fluid level in the right maxillary sinus. The rest of the sinuses and mastoids are normal. IMPRESSION: 1. Status post right frontal craniotomy and supraclinoid aneurysm clip procedure. 2. Mild old small vessel changes of the white matter (most pronounced in the frontal lobes). 3. No evidence of acute intracranial process. 4. Mild to moderate bilateral maxillary sinus mucosal thickening with fluid level in the right maxillary sinus (acute and chronic changes). 5. Findings discussed with Dr. Elena Lambert at [address] scans at this facility use dose modulation, iterative reconstruction, and/or weight-based dosing when appropriate to reduce radiation dose to as low as reasonably achievable.
[2016-10-01] MEDS ORDERED: AUGMENTIN875 MG PO (12:14)
[2016-10-01] MEDS ORDERED: FLONASE AL50 MCG/ACT (12:18)
--- NOTE | 2016-10-01 12:21 | Provider's Discharge Care Plan ---
Problem, Goal, Plan Problem List 1. Sinusitis Instructions: Please take your antibiotic as prescribed until all pills are gone. Stop taking the azithromyicin, as you no longer need this. Use the flonase daily until your symptoms improve. Follow up with your primary care doctor this week. 2. Headache Instructions: You have been ruled out for bleeding in the brain, stroke, and meningitis. Your CT scan showed significant sinusitis, and this is likely the cause of your symptoms. If your symptoms worsen despite taking the prescribed medications, please return to the ER or call your primary care doctor.
--- NOTE | 2016-10-01 12:35 | Discharge Summary ---
Discharge Summary Report Admit Date 09/30/16 Discharge Date 10/01/16 Admission Diagnosis Possible TIA HTN Fibromyalgia Tobacco dependence Discharge Diagnosis Acute sinusitis, likely the cause of her headache HTN Fibromyalgia Tobacco dependence Brief History per H&P: 61 year old female with a past medical history of Essential Hypertension, Pulmonary Embolism, Brain Aneurysm, COPD, Fibromyalgia, and Tobacco Use Disorder who presents to the ER at [facility] complaining of headache and acute confusion. Pt was seen by her PCP earlier today and was sent over from clinic via EMS for further evaluation. Pt states she developed significant confusion this morning and suddenly was unable to recall where she was and why she was there while at her PCPs office this morning. Pt states she has been having a severe headache since yesterday which her home medications have not been relieving, and she went to see her PCP today for further evaluation. She states her symptoms have resolved now, except she continues to have a significant headache. She denies any change in her visual, speech, and swallowing ability. Pt denies any focal weakness, nausea, vomiting, palpitations, chest pain, and shortness of breath. Hospital Course Patient underwent CT in the ED, which showed her known aneurysmal clip. LP was performed, which ruled out bleeding or meningitis. Due to her reported confusion, there was concern that this may be TIA/stroke. She was admitted for rule out, and repeat HCT (could not have MRI due to metal plates) showed no development of an infarct. Her carotid dopplers were also unremarkable. However, her CT did show significant maxillary sinusitis, mostly on the R side where she was complaining of headache. She states that she affirms that she had just been started on azithromycin a couple days ago for respiratory symptoms. Her antibiotic was changed to augmentin for better sinus penetration, and she will complete a 7 day course of this as an outpatient. She was also prescribed flonase to help alleviate sinus congestion and allow fluid drainage. She was prescribed a short course of [place] for PRN pain symptoms. She stated that she could follow up with her primary care physician later this week, and agreed to return if her symptoms worsened. Prior to discharge, patient had no neurologic deficits and was feeling better. All of her and her 's questions were answered to their satisfaction, and they were agreeable with the plan of care. As the patient's symptoms were highly unlikely to be due to TIA, and stroke had been ruled out, she was not prescribed an aspirin or statin. She will follow up with her primary care physician for further monitoring and treatment. General Appearance Alert, Oriented X3, Cooperative, No acute distress HEENT Atraumatic, PERRLA, EOMI, Mucous membran moist/pink, sinus tenderness in maxillary and frontal regions, R>L Lungs Clear to auscultation Cardiovascular Regular Rate, Normal S1, Normal S2, No murmurs Abdomen Normal bowel sounds, Soft, No tenderness Skin No Rashes Neurological Normal gait, Normal speech, Strength at 5/5 X4 ext, Normal tone, Sensation intact, Cranial nerves 3-12 NL Psych/Mental Status Mental status NL Lab/Imaging Laboratory Tests 10/01 10/01 10/01 09/30 09/30 1132 0330 0 2004 1605 Chemistry Plasma Sodium (136 - 145 mmol/L) 143 Plasma Potassium (3.5 - 5.1 mmol/L) 4.0 Plasma Chloride (98 - 107 mmol/L) 108 CO2 (Enzymatic) (21 - 32 mmol/L) 27 BUN (7 - 18 mg/dL) 12 Creatinine (0.6 - 1.3 mg/dL) 0.5 Est GFR ( Amer) (mL/min) >60 Est GFR (Non-Af Amer) (mL/min) >60 Glucose (70 - 110 mg/dL) 113 Plasma Calcium (8.5 - 10.1 mg/dL) 8.7 Plasma Magnesium (1.8 - 2.4 mg/dL) 2.1 Total Bilirubin (0.0 - 1.0 mg/dL) 0.5 AST (15 - 37 U/L) 23 ALT (12 - 78 U/L) 41 Alkaline Phosphatase (46 - 116 U/L) 78 Creatine Kinase (24 - 260 U/L) 287 277 323 CK-MB (CK-2) (0.5 - 3.2 ng/mL) 6.6 5.3 6.7 CK/CKMB % Calc (0.0 - 4.0 %) 2.3 1.9 2.1 Troponin (0.00 - 1.5 ng/mL) <0.05 <0.05 <0.05 Total Protein (6.4 - 8.2 g/dL) 6.5 Albumin (3.3 - 5.0 g/dL) 3.2 Triglycerides (30 - 200 mg/dL) 196 Cholesterol (140 - 200 mg/dL) 258 LDL Cholesterol, Calc (mg/dL) 174 HDL Cholesterol (32 - 96 mg/dL) 45 LDL/HDL Ratio 3.9 Cholesterol/HDL Ratio 5.7 Coronary Risk Interp (0.4 - 1.0) 1.3 Hematology WBC (4.5 - 11.5 K/uL) 6.5 RBC (4.00 - 5.20 M/uL) 4.58 Hgb (12.0 - 16.0 gm/dL) 14.5 Hct (36.0 - 46.0 %) 43.0 MCV (80 - 100 fL) 94 MCH (26 - 34 pg) 32 RDW (11.6 - 14.8 %) 15.0 Neut % (Auto) (50 - 75 %) 47.1 Lymph % (Auto) (25 - 40 %) 41.1 [place] % (Auto) (3 - 14 %) 8.8 Eos % (Auto) (0 - 4 %) 2.3 Baso % (Auto) (0 - 2 %) 0.7 Plt Count, EDTA (150 - 400 K/uL) 226 PUBS MCHC (31 - 37 g/dL) 34 Other Body Source CSF Tube Number 3 CSF Volume (CC) 3.0 CSF Appearance CLEAR CSF Color COLORLESS CSF WBC (0 - 5 WBC/mm3) 5 CSF RBC (0 - 5 RBC/mm3) 0 CSF Glucose (40 - 75 mg/dL) 58 CSF Total Protein (15 - 45 mg/dL) 80.2 Microbiology Date/Time Procedure - Status Source Growth 09/30 220 MRSA Screen - RECD NASAL 09/30 1605 CSF Culture - RES CSF 09/30 1605 Gram Stain - RES CSF Discharge Instructions/Meds Patient will have 7 days of Augmentin therapy. She was prescribed flonase as well, and prn hydrocodone. She was instructed to follow up with her primary care physician this week. E&M Codes Discharge: Observation - All/[id number]
--- NOTE | 2016-10-03 21:38 | ED MAR SUMMARY ---
..... Medication Administration Record [facility] [address] [place] [address] Patient: LULA MALDONADO Visit ID: [id number] 61y, F Weight: 73.9 kg Height/Length: 61 in BMI: 30.8 ALLERGIES: Codeine, Demerol, morphine Given 12:34 09/30/2016 Connie Marshall R.N. Medication Administered: DILAUDID [IVP] (HYDROMORPHONE HCL PF), Dose: 0.5 mg IVP over 1 minute(s), Site: #1 left AC. Medication Ordered: Dilaudid IV 0.5 mg (NOW) (Sched q5m for X2); Routine (Prn pain) 1 of 2. Given 12:35 09/30/2016 Connie Marshall R.N. Medication Administered: ZOFRAN [IVP] (ONDANSETRON HCL), Dose: 4 mg IVP over 2 minute(s), Site: #1 left AC. Medication Ordered: Zofran IV 4 mg (NOW). Given 12:52 09/30/2016 Connie Marshall R.N. Medication Administered: ATIVAN [IVP] (LORAZEPAM), Dose: 0.5 mg IVP over 1 minute(s), Site: #1 left AC. Medication Ordered: Ativan IV 0.5 mg (NOW). Given 15:31 09/30/2016 Connie Marshall R.N. Medication Administered: DILAUDID [IVP] (HYDROMORPHONE HCL PF), Dose: 0.5 mg IVP over 1 minute(s), Site: #1 left AC. Medication Ordered: Dilaudid IV 0.5 mg (NOW) (Sched q5m for X2); Routine (Prn pain) 2 of 2. Given 15:31 09/30/2016 Connie Marshall R.N. Medication Administered: ATIVAN [IVP] (LORAZEPAM), Dose: 0.5 mg IVP over 1 minute(s), Site: #1 left AC. Medication Ordered: Ativan IV 0.5 mg (NOW). Given 16:59 09/30/2016 Marshall, Connie, R.N. Medication Administered: DILAUDID [IVP] (HYDROMORPHONE HCL PF), Dose: 0.5 mg IVP over 1 minute(s), Site: #1 left AC. Medication Ordered: Dilaudid IV 0.5 mg (NOW). Given 17:03 09/30/2016 Connie Marshall R.N. Medication Administered: ZOFRAN [IVP] (ONDANSETRON HCL), Dose: 4 mg IVP over 2 minute(s), Site: #1 left AC. Medication Ordered: Zofran IV 4 mg (NOW). Given 17:19 09/30/2016 Connie Marshall R.N. Medication Administered: ATIVAN [IVP] (LORAZEPAM), Dose: 0.5 mg IVP over 1 minute(s), Site: #1 left AC. Medication Ordered: Ativan IV 0.5 mg (NOW). Given 20:16 09/30/2016 Connie Marshall R.N. Medication Administered: ASPIRIN [PO], Dose: 325 mg PO. Medication Ordered: Aspirin PO 325 mg (NOW). Given 21:25 09/30/2016 Connie Marshall R.N. Medication Administered: DILAUDID [IVP] (HYDROMORPHONE HCL PF), Dose: 1 mg IVP over 2 minute(s), Site: #1 left AC. Medication Ordered: Dilaudid IV 1 mg (HIGH ALERT MEDICATION, NOW).
--- NOTE | 2016-10-03 21:38 | ED DISCHARGE INSTRUCTIONS ---
Patient: LULA MALDONADO General Instructions [facility] VisitID: [id number] [address] [place] [address] 61y, F Registration Date/Time: 09/30/2016 Transient global amnesia TIA Headache. (Electronically signed by John France MD 10/03/2016 21:37)
--- NOTE | 2016-10-03 21:38 | ED MAR SUMMARY ---
..... Medication Administration Record [facility] [address] [place] [address] Patient: LULA MALDONADO Visit ID: [id number] 61y, F Weight: 73.9 kg Height/Length: 61 in BMI: 30.8 ALLERGIES: Codeine, Demerol, morphine Given 12:34 09/30/2016 Connie Marshall R.N. Medication Administered: DILAUDID [IVP] (HYDROMORPHONE HCL PF), Dose: 0.5 mg IVP over 1 minute(s), Site: #1 left AC. Medication Ordered: Dilaudid IV 0.5 mg (NOW) (Sched q5m for X2); Routine (Prn pain) 1 of 2. Given 12:35 09/30/2016 Connie Marshall R.N. Medication Administered: ZOFRAN [IVP] (ONDANSETRON HCL), Dose: 4 mg IVP over 2 minute(s), Site: #1 left AC. Medication Ordered: Zofran IV 4 mg (NOW). Given 12:52 09/30/2016 Connie Marshall R.N. Medication Administered: ATIVAN [IVP] (LORAZEPAM), Dose: 0.5 mg IVP over 1 minute(s), Site: #1 left AC. Medication Ordered: Ativan IV 0.5 mg (NOW). Given 15:31 09/30/2016 Connie Marshall R.N. Medication Administered: DILAUDID [IVP] (HYDROMORPHONE HCL PF), Dose: 0.5 mg IVP over 1 minute(s), Site: #1 left AC. Medication Ordered: Dilaudid IV 0.5 mg (NOW) (Sched q5m for X2); Routine (Prn pain) 2 of 2. Given 15:31 09/30/2016 Connie Marshall R.N. Medication Administered: ATIVAN [IVP] (LORAZEPAM), Dose: 0.5 mg IVP over 1 minute(s), Site: #1 left AC. Medication Ordered: Ativan IV 0.5 mg (NOW). Given 16:59 09/30/2016 Marshall, Connie, R.N. Medication Administered: DILAUDID [IVP] (HYDROMORPHONE HCL PF), Dose: 0.5 mg IVP over 1 minute(s), Site: #1 left AC. Medication Ordered: Dilaudid IV 0.5 mg (NOW). Given 17:03 09/30/2016 Connie Marshall R.N. Medication Administered: ZOFRAN [IVP] (ONDANSETRON HCL), Dose: 4 mg IVP over 2 minute(s), Site: #1 left AC. Medication Ordered: Zofran IV 4 mg (NOW). Given 17:19 09/30/2016 Connie Marshall R.N. Medication Administered: ATIVAN [IVP] (LORAZEPAM), Dose: 0.5 mg IVP over 1 minute(s), Site: #1 left AC. Medication Ordered: Ativan IV 0.5 mg (NOW). Given 20:16 09/30/2016 Connie Marshall R.N. Medication Administered: ASPIRIN [PO], Dose: 325 mg PO. Medication Ordered: Aspirin PO 325 mg (NOW). Given 21:25 09/30/2016 Connie Marshall R.N. Medication Administered: DILAUDID [IVP] (HYDROMORPHONE HCL PF), Dose: 1 mg IVP over 2 minute(s), Site: #1 left AC. Medication Ordered: Dilaudid IV 1 mg (HIGH ALERT MEDICATION, NOW).
--- NOTE | 2016-10-03 21:38 | ED DISCHARGE INSTRUCTIONS ---
Patient: LULA MALDONADO General Instructions [facility] VisitID: [id number] [address] [place] [address] 61y, F Registration Date/Time: 09/30/2016 Transient global amnesia TIA Headache. (Electronically signed by John France MD 10/03/2016 21:37)
--- NOTE | 2016-10-03 21:38 | ED MED RECONCILIATION SUMMARY ---
Patient: LULA MALDONADO Medication Reconciliation Report [facility] VisitID: [id number] [address] [place] [address] 61y, F Registration Date/Time: 09/30/2016 Weight: 73.9 kg Height/Length: 61 in. BMI: 30.8 ALLERGIES: Codeine, Demerol, morphine The patient's Home Medications are listed below: THE FOLLOWING MEDICATIONS NEED TO BE RECONCILED: Albuterol Sulfate HFA Inhalation Azithromycin Oral Hydrocodone-Acetaminophen Oral Metoprolol Tartrate Oral 25 mg, twice daily Mucinex D Oral The source(s) of the original Home Medication information: patient other The following Medications were given to the patient in the Emergency Department: Dilaudid [IVP] IVP 0.5 mg, administered: 09/30/2016 12:34:00 PM Zofran [IVP] IVP 4 mg, administered: 09/30/2016 12:35:00 PM Ativan [IVP] IVP 0.5 mg, administered: 09/30/2016 12:52:00 PM Dilaudid [IVP] IVP 0.5 mg, administered: 09/30/2016 3:31:00 PM Ativan [IVP] IVP 0.5 mg, administered: 09/30/2016 3:31:00 PM Zofran [IVP] IVP 4 mg, administered: 09/30/2016 5:03:00 PM Dilaudid [IVP] IVP 0.5 mg, administered: 09/30/2016 4:59:00 PM Ativan [IVP] IVP 0.5 mg, administered: 09/30/2016 5:19:00 PM Aspirin [PO] PO 325 mg, administered: 09/30/2016 8:16:00 PM Dilaudid [IVP] IVP 1 mg, administered: 09/30/2016 9:25:00 PM The following Medications were prescribed to the patient: None.
--- NOTE | 2016-10-03 21:38 | ED MED RECONCILIATION SUMMARY ---
Patient: LULA MALDONADO Medication Reconciliation Report [facility] VisitID: [id number] [address] [place] [address] 61y, F Registration Date/Time: 09/30/2016 Weight: 73.9 kg Height/Length: 61 in. BMI: 30.8 ALLERGIES: Codeine, Demerol, morphine The patient's Home Medications are listed below: THE FOLLOWING MEDICATIONS NEED TO BE RECONCILED: Albuterol Sulfate HFA Inhalation Azithromycin Oral Hydrocodone-Acetaminophen Oral Metoprolol Tartrate Oral 25 mg, twice daily Mucinex D Oral The source(s) of the original Home Medication information: patient other The following Medications were given to the patient in the Emergency Department: Dilaudid [IVP] IVP 0.5 mg, administered: 09/30/2016 12:34:00 PM Zofran [IVP] IVP 4 mg, administered: 09/30/2016 12:35:00 PM Ativan [IVP] IVP 0.5 mg, administered: 09/30/2016 12:52:00 PM Dilaudid [IVP] IVP 0.5 mg, administered: 09/30/2016 3:31:00 PM Ativan [IVP] IVP 0.5 mg, administered: 09/30/2016 3:31:00 PM Zofran [IVP] IVP 4 mg, administered: 09/30/2016 5:03:00 PM Dilaudid [IVP] IVP 0.5 mg, administered: 09/30/2016 4:59:00 PM Ativan [IVP] IVP 0.5 mg, administered: 09/30/2016 5:19:00 PM Aspirin [PO] PO 325 mg, administered: 09/30/2016 8:16:00 PM Dilaudid [IVP] IVP 1 mg, administered: 09/30/2016 9:25:00 PM The following Medications were prescribed to the patient: None.
[2016-11-24] MEDS ORDERED: VITAMIN D-31000 UNIT PO (11:08)
[2016-11-24] MEDS ORDERED: [UNRECOGNIZED DRUG - CODE] PO (11:09)
== END 2016-10-01 13:02 | disposition home or self-care (01) ==
LOC: ED SRH 11:23 → TRANS SRH 20:36 → CC SRH 21:54
PROVIDERS: ADMIT Family Medicine
PROC: 009U3ZX Drainage of Spinal Canal, Percutaneous Approach, Diagnostic (ICD-10-PCS; principal; 2016-09-30)
DX: J01.00 Acute maxillary sinusitis, unspecified (principal); R51 Headache; R41.0 Disorientation, unspecified; R00.0 Tachycardia, unspecified; J44.9 Chronic obstructive pulmonary disease, unspecified; F17.210 Nicotine dependence, cigarettes, uncomplicated; M79.7 Fibromyalgia; I10 Essential (primary) hypertension
CPT/HCPCS: 29253; 29259; 29264; 90004; 90074; 90100; 90134; 90309; 90616; 90617; 91585; 92070; 92132; 92610; 92653; 92690; 92720; 92760; 92761; 92762; 92763; 92764; 92765; 92766; 92767; 95030; 95059; 95150

== ENCOUNTER 2016-10-02 12:14 | Outpatient (CLI) | payer BC ==
[~2016-10-02 12:14] MED LIST: ALBUTEROL HFA60 DOSE IN; AUGMENTIN875 MG PO; AZITHROMYCIN500 MG PO; BAYER ASPIRIN E81 M1 PO; FLONASE AL50 MCG/ACT; METOPROLOL TART25 MG PO; MUCINEX600 MG PO; NORCO1 TA1 PO; VITAMIN D-31000 UNIT PO; VITAMIN E200 UNIT PO
--- NOTE | 2016-10-02 14:33 | DIAGNOSTIC IMAGING REPORT ---
PROCEDURE: CT ABDOMEN/PELVIS W/O CONTRAST INDICATION: ABDOMINAL PAIN, BLOOD IN STOOL, HX DIVERTICULITIS, initial encounter TECHNIQUE: Noncontrast axial images were obtained of the entire abdomen and pelvis with sagittal and coronal reformations. COMPARISON: CT abdomen/pelvis 02/15/2016 FINDINGS: ABDOMEN: Minor right basilar atelectasis. Heart size is normal. Liver, gallbladder, pancreas, spleen, adrenal glands and kidneys are normal. Mild atherosclerosis. Scattered diverticula of the ascending and descending colon. PELVIS: Thickening of the distal descending and proximal sigmoid colon with several diverticula and mild adjacent stranding of the mesenteric fat consistent with diverticulitis. No abscess or free air. Normal appendix. The uterus, adnexa and bladder are unremarkable. Mild degenerative changes of the spine. IMPRESSION: 1. Mild descending and sigmoid colon diverticulitis 2. Results discussed with ROMY Marte All CT scans at this facility use dose modulation, iterative reconstruction, and/or weight-based dosing when appropriate to reduce radiation dose to as low as reasonably achievable.
[2016-11-24] MEDS ORDERED: VITAMIN D-31000 UNIT PO (11:08)
[2016-11-24] MEDS ORDERED: [UNRECOGNIZED DRUG - CODE] PO (11:09)
== END 2016-10-02 23:00 ==
LOC: CT SRH 12:14
DX: R10.9 Unspecified abdominal pain (principal); K92.1 Melena; K57.32 Diverticulitis of large intestine without perforation or abscess without bleeding

== ENCOUNTER 2016-11-27 11:26 | Day surgery (SDC) | payer BC ==
[~2016-11-27] VITALS: Ht 154.9 cm; Wt 73.5 kg
[~2016-11-27 11:26] MED LIST changes: +[UNRECOGNIZED DRUG - CODE] PO
--- NOTE | 2016-11-27 14:49 | Provider's Discharge Care Plan ---
Problem, Goal, Plan Problem List 1. Pena's esophagus 2. Hiatal hernia 3. Colon polyp 4. Diverticulosis
--- NOTE | 2016-11-27 14:49 | Provider's Discharge Care Plan ---
Problem, Goal, Plan Problem List 1. Pena's esophagus 2. Hiatal hernia 3. Colon polyp 4. Diverticulosis
--- NOTE | 2016-11-27 15:20 | OPERATIVE REPORT ---
DATE OF SURGERY: 11/27/2016 SURGEON: Trace Rodarte MD PREOPERATIVE DIAGNOSES: 1. Abdominal pain 2. Hematochezia 3. History of Pena esophagus 4. Gastroesophageal reflux disease POSTOPERATIVE DIAGNOSES: 1. Colon polyp 2. Diverticulosis 3. Hiatal hernia 4. Pena change PROCEDURES PERFORMED: 1. Colonoscopy with forceps polypectomy 2. Esophagogastroduodenoscopy with biopsies ANESTHESIA: Total IV general. INDICATIONS: The patient is a 61-year-old woman who has had bloating, abdominal pain and 1 episode of hematochezia. She had a previous endoscopy showing Pena change. She has also noticed increasing constipation. SURGICAL TECHNIQUE: The patient was taken to the endoscopy suite where total IV general was administered and the patient was placed in the left lateral decubitus position. A well-lubricated colonoscope was advanced the length of the colon under direct vision. On withdrawal, the entire colon was inspected. This demonstrated diverticulosis, primarily confined to the sigmoid colon. There was a single sessile 3 mm polyp noted at 15 cm from the anal verge. This was removed with multiple bites of biopsy forceps. The rest of the colon was normal, including a retroflexed view of the rectum. The upper GI endoscope was introduced. When the GE junction was approached, there was clear evidence of Pena change, with 3 cm or more of irregularity and isolated islands of adenomatous tissue. The gastric body was entered and the duodenum first inspected. There were a few minor red spots in the duodenum, but no ulcers. On withdrawal, a single biopsy was taken for Helicobacter testing. On retroflexed view and anteflexed view, it appeared the patient had a large type 1 sliding hiatal hernia. The squamocolumnar junction was again viewed, and biopsies were taken from at least 4 sites around the quadrants, near the squamocolumnar junction for Pena surveillance purposes. The rest of the esophagus was normal, and the patient left in good condition.
[2016-11-27 15:53] VITALS: BP 125/87
== END 2016-11-27 15:49 | disposition home or self-care (01) ==
LOC: OR SRH 11:26 → SCU SRH 11:27 → OR SRH 12:00
PROVIDERS: Surgery
PROC: 0DB68ZX Excision of Stomach, Via Natural or Artificial Opening Endoscopic, Diagnostic (ICD-10-PCS; principal; 2016-11-27 13:00)
PROC: 0DB38ZX Excision of Lower Esophagus, Via Natural or Artificial Opening Endoscopic, Diagnostic (ICD-10-PCS; principal; 2016-11-27 13:00)
PROC: 0DBN8ZX Excision of Sigmoid Colon, Via Natural or Artificial Opening Endoscopic, Diagnostic (ICD-10-PCS; principal; 2016-11-27 13:00)
DX: D12.7 Benign neoplasm of rectosigmoid junction (principal); K22.70 Barrett's esophagus without dysplasia; K44.9 Diaphragmatic hernia without obstruction or gangrene; J44.9 Chronic obstructive pulmonary disease, unspecified; Z72.0 Tobacco use
CPT/HCPCS: 29229; 29240; 50004; 60001; 82944; 90705